=== PATIENT | female | born 1960 | race Caucasian/White ===

== ENCOUNTER → 2020-04-06 | Outpatient (CLI) | payer OTHER | LOC: CAT 14:52 | PROVIDERS: ATTEND Nurse Practitioner | DX: Z13.6 Encounter for screening for cardiovascular disorders (principal); I25.10 Atherosclerotic heart disease of native coronary artery without angina pectoris; E78.00 Pure hypercholesterolemia, unspecified ==

== ENCOUNTER → 2020-08-07 | Outpatient (CLI) | payer OTHER | LOC: RAD 11:01 | PROVIDERS: ATTEND Nurse Practitioner | DX: J98.4 Other disorders of lung (principal); G89.29 Other chronic pain; Z86.79 Personal history of other diseases of the circulatory system ==